=== PATIENT | female | born 1995 | race Caucasian/White ===

== ENCOUNTER 2020-10-25 12:33 | Emergency (ER) | payer OTHER, SELFPAY ==
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
[2020-10-25 12:54] VITALS: BP 156/100; PULSE 95; RESP 16; TEMP 35.7; O2SAT 100
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
[2020-10-25 14:05] VITALS: BP 140/100; PULSE 90; RESP 16; O2SAT 97
== END 2020-10-25 14:22 | disposition home or self-care (01) ==
PROVIDERS: Emergency Provider General Practice; PCP Family Medicine
DX: S29.012A Strain of muscle and tendon of back wall of thorax, initial encounter (principal); V49.50XA Passenger injured in collision with unspecified motor vehicles in traffic accident, initial encounter; R93.7 Abnormal findings on diagnostic imaging of other parts of musculoskeletal system
CPT/HCPCS: 72072; 81025; 99283

== ENCOUNTER 2022-09-24 02:24 | Day surgery (SDC) | payer OTHER, SELFPAY ==
[2022-09-17 12:56] VITALS: BMI 36.6
--- NOTE | 2022-09-17 12:59 | PC.NURSE ---
Report to the Outpatient Waiting Room, entrance under the green pavilion located off [facility], at time 0830 on date 09/24/22. Planned Procedure Time: 1030. Time changes happen often and if your time is changed the preop area will call you the afternoon before. - You and your visitor will be asked to self-screen and do not enter if you have any COVID symptoms. - Only one visitor is requested with a max of two and NO children visitors are allowed at this time. - The patient visitor may be requested to leave or wait in car when not with patient due to distancing restrictions. - A mask is REQUIRED within the hospital. Patients may have clear liquids (water, carbonated beverages, clear teas, apple juice) until 3 hours prior to surgery with a maximum of 20 ounces. - No food from midnight until time of surgery Take the following medications with a SIP of water the morning of surgery: N/A Medications to discontinue per physician: N/A Date to take last dose: N/A Please no make-up, nail belarusian, hairspray, perfume, deodorant, or body powder the day of surgery. No jewelry (including any body piercings) or valuables the day of surgery, leave them at home. Please take a shower or bath the night before, or the morning of, surgery with an antibacterial soap. Wear comfortable, loose fitting clothing. - Jewelry must be removed prior to entering the operating room. Rings and piercings that are not removed may be cut off. - The hospital will not accept responsibility for valuables. - Please leave all valuables, including medications, at home the day of surgery. If you are going home after surgery, a licensed shuttle driver must drive you home. - NO public transportation without another adult if you receive anesthesia. - We recommend that an adult stay with you for 24 hours following discharge. - We also recommend that you do not drive, make important decision, drink alcoholic beverages, or take any drugs that were not prescribed by your health care provider for at least 24 hours after your discharge time. Follow any additional instructions given to you from your surgeon. If you or anyone in your household have experienced Covid symptoms in the past week, please notify your surgeon or the nurse liaison at the phone number below for possible testing. Telephone instructions given to PT - MEJIA MENDIOLA and asked if any additional questions and then verbalized understanding. Patient advised to call surgeon office or pre surgery nurse liaison [phone] if any additional questions.
[2022-09-24] MEDS: ACETAMINOPHEN 500 MG TABLET 1000 MG PO (11:44)
[2022-09-24 12:10] VITALS: BP 143/86; PULSE 87; RESP 16; TEMP 36.6; O2SAT 99
[2022-09-24] MEDS: LACTATED RINGERS 1,000 ML 30 ML IV CONT (12:26)
--- NOTE | 2022-09-24 12:58 | P.PNAN_ITS ---
Anes - Initial Pre Proc Eval Procedure: Operation Date: 09/24/22 13:30 Proposed Procedures p Suction Dilatation and Curettage - Forrest Donovan MD Date/Time: 09/24/22 12:58 Surgeon: Forrest Donovan MD Pre Op Diagnosis: missed AB Patient Data Age: 27 Gender: F Height: 1.69 m Weight: 104.8 kg Last Vital Signs Temp 36.6 C 09/24/22 12:10 Pulse 87 09/24/22 12:10 Resp 16 09/24/22 12:10 BP 143/86 H 09/24/22 12:10 Pulse Ox 99 09/24/22 12:10 O2 Del Method Room Air 09/24/22 12:10 Allergies Allergy/AdvReac Type Severity Reaction Status Date / Time No Known Allergies Allergy Verified 09/24/22 11:41 Home Medications Medication Instructions Recorded Confirmed Type No Home Medications 09/24/22 09/24/22 History Patient hx anesthesia problems: none Family hx anesthesia problems: none Results Review: All pre-operative results and documents have been reviewed as part of the pre- operative evaluation. [facility] Social History Social History Smoking status: Never smoker Alcohol intake: never Substance use: current Substance use type: marijuana Living arrangements: with family Spiritual care concerns: No Anes - Eval Final PreProcedure Day of Procedure 09/24/22 12:58 Patient weight: obese Heart: regular rate and rhythm Lungs: clear to auscultation Airway: Mallampati scale class II Last oral intake: >/= 8 hours ASA classification: II Emergent: no Anesthetic plan: proceed Anesthesia type and monitoring: general GIVS and standard monitoring Results Review: All pre-operative results and documents have been reviewed as part of the pre- operative evaluation. Informed Consent: The patient's anesthetic plan and its attendant risks and benefits were discussed with the patient/family/POA. Questions were solicited and answers provided to the satisfaction of the patient/family/POA.
--- NOTE | 2022-09-24 13:15 | WPDHPUPDATE1 ---
History and Physical Update Update Date/Time: 09/24/22 13:15 History and Physical has been reviewed, including an updated exam of the patient. There are NO changes in the patient's condition. Risks, benefits, and alternatives have been discussed and questions answered. Patient agrees to proceed with procedure.
[2022-09-24] MEDS: LIDOCAINE HCL 1% PF 30 ML VIAL 10 ML INFILTRATE (13:45)
[2022-09-24] MEDS: KETOROLAC 30 MG/ML VIAL (*BKC) IV PUSH (13:51)
[2022-09-24 14:20] VITALS: BP 133/86; PULSE 90; RESP 16
--- NOTE | 2022-09-24 14:30 | W.PM.PROC2 ---
Procedure Note - Detailed Date of Procedure 09/24/22 Pre-op Diagnosis missed AB Post-op Diagnosis Same Procedure Performed Hysteroscopy D&C Surgeon Forrest Donovan MD Anesthesia MAC Indications abnormal uterine bleeding Description of Procedure the patient was taken the operating room. She was prepped and draped in the dorsal lithotomy position after induction of mac anesthesia. A speculum was placed in the vagina. The cervix was grasped with a tenaculum. The cervix was dilated about 1 cm. The hysteroscope was inserted. The intrauterine cavity and endocervix were evaluated. Hysteroscope was withdrawn. A medium-size curette was used to curettage all the surfaces were within the endometrial cavity. the sample was collected on Telfa and sent to pathology. The hysteroscope was reinserted and the above findings were noted. Patient tolerated the procedure well. The speculum and tenaculum were removed. She was taken recovery room in stable condition. Sponge lap and needle counts were correct x2. Estimated Blood Loss 40 Drains No Packing No Pathology Yes Complications No immediate complications Condition Stable Disposition PACU
[2022-09-24 14:55] VITALS: BP 142/81; PULSE 81; RESP 16
[2022-09-24 15:25] VITALS: BP 126/64; PULSE 80; RESP 16
== END 2022-09-24 15:41 | disposition home or self-care (01) ==
PROVIDERS: PCP Family Medicine; Visit Provider Obstetrics & Gynecology
PROC: (CPT 59821; principal; 2022-09-24 13:30)
DX: O02.1 Missed abortion (principal); Z3A.15 15 weeks gestation of pregnancy
CPT/HCPCS: 59821; 36415; 85461; 86850; 86900; 86901; 88305; A9270; J1885; J2250; J2405; J2704; J3010; J7120

== ENCOUNTER 2023-09-01 19:34 | Inpatient (IN) | payer OTHER, SELFPAY ==
[2023-09-01] VITALS (71 sets, daily range): BP systolic 88–142; BP diastolic 43–89; PULSE 78–157; TEMP 36.7–36.8; O2SAT 94–100; BMI 37.1
[2023-09-01] MEDS: fentaNYL CITRATE INJ (*CRX) 100 MCG/2 ML VIAL IV PUSH (20:33)
[2023-09-01] MEDS: ONDANSETRON INJ 4 MG/2 ML VIAL IV PUSH (20:35)
--- NOTE | 2023-09-01 20:42 | LDADM ---
This patient, Carole Amaya, was admitted to Labor/Delivery/Recovery 106 on 09/01/23 at 19:34. Plans for labor, pain management and were discussed with patient. Patient/family oriented to hospital policies and general routines including ID bracelet, bed and alarms, visiting hours, pain management, procedures, bathroom and other care routines, personal items, smoking policy, room service/diet and guest tray routines, security routines, and visiting hours. Patient/Family are encouraged to report perceived risks to care and to ask questions if they do not understand what they are told or what they should do. See OBIX for further documentation.
[2023-09-01 20:44] LABS: Basophils Percent Auto 0.3 % (0.2-1.2); Eosinophils Percent Auto 0.3 % (0-4.4); Hematocrit 36.4 % (37.0-47.0); Hemoglobin 11.8 g/dL (12.0-15.0); Immature Granulocyte Absolute 0.03 K/mm3 (0.00-0.031); Immature Granulocyte Percent A 0.3 % (0-0.5); Lymphocytes Absolute Auto 1.51 K/mm3 (0.9-3.2); Lymphocytes Percent Auto 12.9 % (18.3-44.2); Mean Corpuscular HGB Conc 32.4 g/dl (32-36); Mean Corpuscular Hemoglobin 28.2 pg (26-34); Mean Corpuscular Volume 86.9 fl (80-100); Mean Platelet Volume 9.9 fl (7.4-10.4); Monocytes Absolute Auto 0.8 K/mm3 (0.1-0.6); Monocytes Percent Auto 6.8 % (2.6-8.5); Neutrophils Absolute Auto 9.3 K/mm3 (1.3-6.7); Neutrophils Percent Auto 79.4 % (45.5-73.1); Platelet Count Result 222 k/mm3 (150-375); Red Blood Count 4.19 M/mm3 (4.2-5.4); Red Cell Distribution Width 16.2 % (11.5-14.5); White Blood Count 11.7 K/mm3 (4.5-10.0)
[2023-09-01] MEDS: LACTATED RINGERS 1,000 ML 125 ML IV CONT ×2 (20:58→21:40)
[2023-09-01 21:34] LABS: HIV 1/2 Ab P24 Ag Result Negative (Negative)
--- NOTE | 2023-09-01 21:40 | WPDANESEPP ---
Anes - Eval Pre Procedure Procedure: labor epidural Date/Time: 09/01/23 21:40 Surgeon: johanny Preop Diagnosis: pain during labor Pre Op Diagnosis: Contractions Patient Data Age: 28 Gender: F Height: 1.68 m Weight: 104.33 kg Last Vital Signs Pulse 90 09/01/23 21:31 BP 130/80 09/01/23 21:31 Pulse Ox 94 09/01/23 21:35 O2 Del Method Room Air 09/01/23 20:40 Allergies Allergy/AdvReac Type Severity Reaction Status Date / Time No Known Allergies Allergy Verified 09/01/23 21:05 Home Medications Medication Instructions Recorded Confirmed Type ferrous sulfate 143 mg PO DAILY 09/01/23 09/01/23 History vits 75-iron 28 mg-folic 1 PO 09/01/23 History acid 800 mcg-omega3 440 mg oral pack Laboratory Tests 09/01/23 20:32 WBC 11.7 H K/mm3 (4.5-10.0) RBC 4.19 L M/mm3 (4.2-5.4) Hgb 11.8 L g/dL (12.0-15.0) Hct 36.4 L % (37.0-47.0) MCV 86.9 fl (80-100) MCH 28.2 pg (26-34) MCHC 32.4 g/dl (32-36) RDW 16.2 H % (11.5-14.5) Plt Count 222 k/mm3 (150-375) MPV 9.9 fl (7.4-10.4) Immature Gran % (Auto) 0.3 % (0-0.5) Neut % (Auto) 79.4 H % (45.5-73.1) Lymph % (Auto) 12.9 L % (18.3-44.2) Boundary % (Auto) 6.8 % (2.6-8.5) Eos % (Auto) 0.3 % (0-4.4) Baso % (Auto) 0.3 % (0.2-1.2) Lymph # (Auto) 1.51 K/mm3 (0.9-3.2) Boundary # (Auto) 0.8 H K/mm3 (0.1-0.6) Eos # (Auto) 0.0 K/mm3 (0-0.3) Baso # (Auto) 0.0 K/mm3 (0.0-0.1) Abs Immat Gran (auto) 0.03 K/mm3 (0.00-0.031) Absolute Neuts (auto) 9.3 H K/mm3 (1.3-6.7) Absolute Nucleated RBC 0.0 K/mm3 (0.0-0.012) Nucleated RBC % 0.0 % (0.0-0.2) RPR Pending HIV 1&2 Ab/P24 Ag 4thGn Negative (Negative) Blood Type B Positive Antibody Screen Negative Patient hx anesthesia problems: none Family hx anesthesia problems: none Results Review: All pre-operative results and documents have been reviewed as part of the pre-operative evaluation. [facility] Past Medical History Medical History (Updated 09/01/23 @ 21:41 by Luci Parker CRNA) IUP (intrauterine ), incidental Obesity Social History Social History Smoking status: Current every day smoker Additional smoking assessment comments: pt states she smoked weed throughout to help with nausea Alcohol intake: never Substance use: current Substance use type: marijuana Lack of Transportation: No Lack of Food: Never True Current Housing: I Have Housing Concerned About Future Housing: No Difficulty Paying Gas/Electric Bills: No Difficulty Paying for Meds: No Currently Unemployed: YES Education: High School Diploma/GED Difficulty w/ Childcare or Family Care: No Living arrangements: with family Spiritual care concerns: No Exam Day of Procedure 09/01/23 21:40
--- NOTE | 2023-09-01 22:22 | PC.NURSE ---
0756- RN called Dr. Donovan to notify of this pts arrival. RN given orders to contact Dr. Sargent. 0801- RN called Dr. Sargent and notified of pts arrival. RN requested ... MD to provide in AM. confirmed no additional labs need to be drawn and an uncomplicated .
[2023-09-01 23:56] LABS: Amphetamine Screen Urine Negative (Negative); Barbiturate Screen Urine Negative (Negative); Benzodiazepines Screen Urine Negative (Negative); Cannabinoid Screen Urine Positive (Negative); Cocaine Screen Urine Negative (Negative); Methadone Screen Urine Negative (Negative); Opiate Screen Urine Negative (Negative); Phencyclidine Screen Urine Negative (Negative)
[2023-09-02] VITALS (9 sets, daily range): BP systolic 87–154; BP diastolic 49–83; PULSE 71–120; RESP 16–18; TEMP 36.4–37.2; O2SAT 96–100
--- NOTE | 2023-09-02 00:13 | PM.OBPRVD ---
OB - Vaginal Delivery Note Procedure Delivery date: 09/02/23 Induction method: None Delivery monitor: External FHT and External Uterine Route of delivery: Episiotomy description: None Laceration Description: None Specimen: No Quantitative Blood Loss (ml): 150 Anesthesia type: Epidural Disposition: Floor [place] Baby Date of : 09/01/23 Time of : 23:56 Weeks of gestation at delivery: 38 gender: Male Weight (pounds): 7 Weight (ounces): 2 score one minute: 8 score five minutes: 9
[2023-09-02] MEDS: OXYTOCIN 30 UNITS/NS 500 ML 30 UNITS/500 ML BAG 125 UNITS IV CONT (00:45)
--- NOTE | 2023-09-02 02:17 | OBPPTRN ---
Patient transferred to post room #289 via w/c. Support person present. Oriented to unit, room, information board, rooming in, admission packet and security measures. Patient verbalizes understanding.
[2023-09-02] MEDS: DOCUSATE SODIUM 100 MG CAPSULE PO ×2 (09:53→16:32)
[2023-09-02] MEDS: MULTIVIT/MIN/PREN/FOL AC/IRON TABLET 1 TAB PO (09:53)
[2023-09-02] MEDS: IBUPROFEN 600 MG TABLET PO ×2 (09:57→16:32)
--- NOTE | 2023-09-02 13:08 | WPDANLDPN2 ---
Anes-Prog Note L&D Date/Time: 09/02/23 13:08 Comfortable throughout: labor and delivery Neuraxial method: epidural Epidural/Spinal procedure site: clean & non-tender Neuro status: Neuro function grossly intact. Cardiovascular status: normal Respiratory status: normal Airway patency: baseline Mental status: baseline Post-Op hydration status: normal Vital Signs: Last Vital Signs Temp 98.9 F 09/02/23 12:14 Pulse 71 09/02/23 12:14 Resp 16 09/02/23 12:14 BP 130/69 09/02/23 12:14 Pulse Ox 100 09/02/23 12:14 O2 Del Method Room Air 09/02/23 02:30 Pain score (VAS): 0 I/O: Intake & Output 09/01/23 09/02/23 09/02/23 23:59 07:59 15:59 Intake Total 1000 500 Output Total 250 Balance 1000 250 Post-procedural complaints: none Patient feedback: Patient satisfied with anesthetic care.
[2023-09-02 16:37] LABS: Rapid Plasma Reagin Non-Reactive (NonReactive)
--- NOTE | 2023-09-02 17:27 | PC.NURSE ---
7004 Mother verbalizes she is able to independently latch infant with appropriate positioning and alignment. She denies any nipple discomfort and is responsively . is currently meeting outcomes for weight, output, jaundice, blood sugar and feeding frequencies of 8-12 times in 24 hours. Mother declines any additional assistance or education at this time. Mother is encouraged to call for assistance if her doesn?t latch, pain with latching, questions or concerns. Mother voiced understanding of information shared along with the mom/baby guide for an additional resource. Reported to the Primary RN.
[2023-09-03 00:50] VITALS: BP 125/84; PULSE 82; RESP 16; TEMP 36.6; O2SAT 99
[2023-09-03] MEDS: IBUPROFEN 600 MG TABLET PO ×2 (05:02→13:22)
[2023-09-03 05:20] LABS: Hematocrit 33.1 % (37.0-47.0)
[2023-09-03 08:00] VITALS: BP 135/83; PULSE 77; RESP 18; TEMP 36.9; O2SAT 98
[2023-09-03] MEDS: MULTIVIT/MIN/PREN/FOL AC/IRON TABLET 1 TAB PO (10:52)
[2023-09-03] MEDS: LANOLIN (LANSINOH) 7.5 GM CREAM 1 APPLIC TOPICAL (10:53)
[2023-09-03] MEDS: TETANUS,DIPHTHERIA,AC PERTUSSIS ADULT (0.5 ML) BOOSTRIX IM (10:58)
--- NOTE | 2023-09-03 12:51 | PM.OBPNVD ---
OB - PN: Subj Subjective Date/time seen: 09/03/23 12:51 Patient comments: no complaints, pain well controlled, incisional pain, tolerating diet and flatus present OB - PN: Obj Data Labs 09/03/23 04:53 Labs: Laboratory Results - last 24 hr 09/01/23 09/03/23 20:32 04:53 Hgb 10.0 L Hct 33.1 L RPR Non-reactive OB - PN A/P Plan day: 1 Plan: routine care Comments: No problems, routine care Time Spent With Patient Time: Total time spent is greater than 50% in coordination of care (as documented) at patient's floor/unit and/or counseling patient: Exam Const: General: comfortable, no acute distress and alert Resp: Effort & Inspection: normal respiratory effort Auscultation: no crackles, no rales and no rhonchi Cardio: Rate: regular rate Heart sounds: no click, no murmurs and no rubs GI: Inspection: non-distended GI Palp: No Tenderness to palpation present (GI) Auscultation: normal bowel sounds Other: Incision - CDI Extrem: General: normal to inspection, no pedal edema and no calf tenderness
--- NOTE | 2023-09-03 12:51 | PM.OBDSVD ---
DS: Admitting Diagnosis Discharge Date September 03, 2023 Admitting Diagnosis term OB - DS: Summary OB Procedures : None OB Procedures Intrapartum: Spontaneous Vag Delivery OB Procedures: : None Peripartum Data Laceration Description: None Episiotomy description: None Time Spent with Patient Time attestation: Total time spent providing and/or coordinating discharge services: DS: Data Data Completed and Pending Labs on day of discharge: Labs from last 24 hours 09/03/23 09/01/23 04:53 20:32 Hgb 10.0 L Hct 33.1 L RPR Non-reactive Discharge Plan Discharge Discharging Clinician: Forrest Donovan Patient Disposition: Home, Self-Care Activity: pelvic rest Diet: regular Patient Instructions: Antibiotic Form Stand Alone Forms: General Discharge Information Follow-up/Referrals: Forrest Donovan MD [Physician] - Discharge Medications: Continued Daily [id number] mg-mcg-mg Combo Pack 1 PO Slow Fe 47.5 mg iron Tablet Extended Release 143 mg PO DAILY Date of admission: 09/01/23 19:34 Primary Care Provider: UNKNOWN,DOCTOR Admitting Provider: Ash Sargent Attending physician on admission: Ash Sargent Condition: Stable
[2023-09-05 08:16] VITALS: BP 130/74; PULSE 78; RESP 18; O2SAT 100
== END 2023-09-03 14:15 | disposition home or self-care (01) | DRG 560 ==
LOC: ANHLDR 20:13 → ANHOB2 09-03 12:52 → ANHLDR 09-06 07:45 → ANHOB2 09-06 07:45
PROVIDERS: Admitting Provider Obstetrics & Gynecology; Visit Provider Obstetrics & Gynecology
DX: O80 Encounter for full-term uncomplicated delivery (principal); Z3A.38 38 weeks gestation of pregnancy; Z37.0 Single live birth; Z23 Encounter for immunization
CPT/HCPCS: 36415; 80307; 85014; 85018; 85025; 86592; 86703; 86850; 86900; 86901; 90471; 90686; 90715; A9270; G0008; G0432; J2405; J2590; J2795; J3010; J7120